=== PATIENT | female | born 2000 | race Caucasian/White ===

== ENCOUNTER → 2020-04-01 | Outpatient (REF) | payer OTHER | LOC: M WUC 16:00 | PROVIDERS: ATTEND Nurse Practitioner Family | DX: R30.0 Dysuria (principal) ==

== ENCOUNTER 2025-02-14 09:48 | Observation (INO) | payer OTHER ==
[2025-02-14] VITALS (7 sets, daily range): BP systolic 92–114; BP diastolic 45–74; TEMP 97–97.7; O2SAT 94–99
[~2025-02-14] VITALS: Ht 160 cm; Wt 67.6 kg
[~2025-02-14 09:48] MED LIST: ADDE15CA3 PO
[2025-02-14] MEDS ORDERED: dexmedeTOMIDine (4 MCG/ML) 200 MCG/50 ML BTL As Ordered ONE (10:27)
[2025-02-14] MEDS ORDERED: LIDOCAINE 2% 100 MG/5 ML SDV (FOR ANES.) As Ordered ONE (10:27)
[2025-02-14] MEDS ORDERED: dexAMETHasone 4 MG/ML 1 ML VIAL As Ordered ONE (10:27)
[2025-02-14] MEDS ORDERED: ROCURONIUM BROMIDE 50MG/5ML VIAL As Ordered ONE (10:27)
[2025-02-14] MEDS ORDERED: ONDANSETRON 4MG 2ML VIAL As Ordered ONE (10:27)
[2025-02-14] MEDS ORDERED: MIDAZOLAM INJ 2 MG/2 ML VIAL As Ordered ONE (10:28)
[2025-02-14] MEDS: LR 1,000 ML IV SCH ×3 (10:30→18:03)
[2025-02-14] MEDS ORDERED: LACRILUBE (AKWA TEARS) OPHTH OINT 3.5 GM As Ordered ONE (10:44)
[2025-02-14] MEDS: SCOPOLAMINE 1MG TRANSDERMAL PATCH TOP ONE (10:50)
[2025-02-14] MEDS: MIDAZOLAM INJ 2 MG/2 ML VIAL IV ONE (10:50)
[2025-02-14] MEDS: ceFAZolin SOD 2 GM IV ONCE IV ONE (13:13)
[2025-02-14] MEDS: HEPARIN SOD 5000 UNITS/ML 1 ML VIAL/SYRINGE SQ ONE (13:14)
[2025-02-14] MEDS ORDERED: ADDE30TA PO (13:33)
[2025-02-14] MEDS ORDERED: HOME MED LIST COMPLETE! XX SCH (13:35)
[2025-02-14] MEDS: GENTAMICIN SULF 80 MG/2 ML VIAL As Ordered ONE (13:40)
[2025-02-14] MEDS ORDERED: PHENYLephrine 500MCG 5ML (100MCG/ML) SYRINGE As Ordered ONE (13:43)
[2025-02-14] MEDS ORDERED: SUGAMMADEX SODIUM 500 MG/5 ML VIAL As Ordered ONE (13:49)
[2025-02-14] MEDS ORDERED: ACETAMINOPHEN 1000MG/100ML IV BAG As Ordered ONE (13:49)
[2025-02-14] MEDS ORDERED: HYDROmorphone HCL 2 MG/ML 1 ML VIAL As Ordered ONE (13:49)
[2025-02-14] MEDS ORDERED: ONDANSETRON 4MG 2ML VIAL IV PRN (15:55)
[2025-02-14] MEDS ORDERED: PERCOCET 5MG/325MG TAB PO PRN (15:55)
[2025-02-14] MEDS ORDERED: HYDROMORPHONE HCL 0.5 MG/0.5 ML SYRINGE IV PRN (16:05)
[2025-02-14] MEDS: ACETAMINOPHEN 325 MG TAB PO PRN (18:13)
[2025-02-14] MEDS: ceFAZolin SODIUM 2 GM in DEXTROSE 5% (D5W) ADV/MINI-BAG 50 ML IV SCH (20:10)
[2025-02-15] MEDS: traMADol 50 MG TAB PO PRN (01:04)
[2025-02-15 06:24] VITALS: BP 91/57; TEMP 97.5; O2SAT 96
[2025-02-15] MEDS ORDERED: TRAM50TA2 PO (09:08)
[2025-02-15 10:00] VITALS: BP 99/55; TEMP 97.5; O2SAT 97
== END 2025-02-15 11:00 | disposition home or self-care (01) ==
LOC: M SDC 09:48 → M MS5PR 09:49
PROVIDERS: ADMIT Plastic Surgery Surgery of the Hand; ATTEND Plastic Surgery Surgery of the Hand
DX: N62 Hypertrophy of breast (principal); M54.6 Pain in thoracic spine; M54.2 Cervicalgia; K21.9 Gastro-esophageal reflux disease without esophagitis; F17.290 Nicotine dependence, other tobacco product, uncomplicated; Z79.899 Other long term (current) drug therapy
CPT/HCPCS: 19318; 81025; 88305; 96361; 96374; 96376; J0131; J0665; J0666; J0690; J1100; J1171; J1580; J2250; J2371; J2405; J2765; J3010